=== PATIENT | male | born 1955 ===

== ENCOUNTER → 2016-12-12 | Outpatient (REF) ==
[2016-12-12 19:38] LABS: THYROID STIMULATING HORMONE 0.863 uIU/mL (0.465-4.680)
== END ==
LOC: ZLAB.WCH 18:22
PROVIDERS: Internal Medicine
DX: Z01.89 Encounter for other specified special examinations (principal)

== ENCOUNTER → 2017-04-23 | Outpatient (REF) | LOC: ZLAB.WCH 18:06 | DX: Z01.89 Encounter for other specified special examinations (principal) ==

== ENCOUNTER → 2017-06-02 | Outpatient (REF) ==
[2017-06-02 18:47] LABS: IRON,SERUM 16 ug/dL (35-150)
[2017-06-02 18:56] LABS: TOTAL IRON BINDING CAPACITY 267 ug/dL (261-462)
[2017-06-02 19:26] LABS: FERRITIN 31 ng/mL (18-464)
== END ==
LOC: ZLAB.WCH 18:08
PROVIDERS: Internal Medicine
DX: Z01.89 Encounter for other specified special examinations (principal)

== ENCOUNTER → 2017-07-09 | Outpatient (REF) ==
[2017-07-09 18:29] LABS: IRON,SERUM 80 ug/dL (35-150)
[2017-07-09 18:38] LABS: TOTAL IRON BINDING CAPACITY 289 ug/dL (261-462)
[2017-07-09 19:06] LABS: FERRITIN 44 ng/mL (18-464)
== END ==
LOC: ZLAB.WCH 18:03
PROVIDERS: Internal Medicine
DX: Z01.89 Encounter for other specified special examinations (principal)

== ENCOUNTER → 2017-08-29 | Outpatient (REF) ==
[2017-08-29 16:09] LABS: IRON,SERUM 19 ug/dL (35-150)
[2017-08-29 16:19] LABS: TOTAL IRON BINDING CAPACITY 246 ug/dL (261-462)
[2017-08-29 16:46] LABS: FERRITIN 94 ng/mL (18-464)
== END ==
LOC: ZLAB.WCH 15:54
PROVIDERS: Internal Medicine
DX: Z01.89 Encounter for other specified special examinations (principal)

== ENCOUNTER → 2018-01-08 | Outpatient (REF) ==
[2018-01-08 09:25] LABS: IRON,SERUM 102 ug/dL (35-150)
[2018-01-08 09:35] LABS: TOTAL IRON BINDING CAPACITY 236 ug/dL (261-462)
[2018-01-08 10:03] LABS: FERRITIN 26 ng/mL (18-464)
== END ==
LOC: ZLAB.WCH 09:09
PROVIDERS: Internal Medicine
DX: Z01.89 Encounter for other specified special examinations (principal)

== ENCOUNTER → 2018-05-19 | Outpatient (REF) ==
[2018-05-19 18:21] LABS: IRON,SERUM 157 ug/dL (35-150)
[2018-05-19 18:31] LABS: TOTAL IRON BINDING CAPACITY 268 ug/dL (261-462)
[2018-05-19 18:58] LABS: FERRITIN 26 ng/mL (18-464)
== END ==
LOC: ZLAB.WCH 18:03
PROVIDERS: Internal Medicine
DX: Z01.89 Encounter for other specified special examinations (principal)